=== PATIENT | female | born 1930 | race Caucasian/White ===

== ENCOUNTER 2021-06-27 21:28 | Emergency (ER) | payer MEDICARE, OTHER ==
[~2021-06-27] VITALS: Ht 162.6 cm; Wt 71.0 kg
[~2021-06-27 21:28] MED LIST: BACTROBAN2 % EX; CENTRUM OR; CO Q-10100 MG OR; D3-50 OR; FEMARA2.5 MG OR; INDOCIN25 MG OR; LABETALOL200 MG OR; LASIX 20 MG TAB20 MG PO; LASIX20 MG PO; LASIX40 MG OR; MAGNESIUM250 M1 OR; MELATONIN5 MG OR; MOTRIN400 MG PO; NEXIUM40 M1 PO; NORVASC2.5 M1 OR; OMEPRAZOLE20 MG OR; PERCOCET 5/325M1 TAB OR; PERCOCET1 TA2 OR; PERCOCET1 TA3 OR; ZETIA10 MG OR; ZYRTEC10 MG OR
[2021-06-27 22:17] LABS: HEMATOCRIT 27.8 % (37.0-47.0); IMMATURE GRANULOCYTES 0.1 % (0.0-5.0); MEAN CELL VOLUME 103.7 fL CALC (80.0-100.0); MEAN CORPUSCULAR HGB 32.1 pG CALC (26.0-32.0); MEAN CORPUSCULAR HGB CONC 30.9 g/dL CAL (32.0-36.0); NEUT# 4.11 thou/uL (2.00-7.15); RED BLOOD COUNT 2.68 mill/uL (4.20-5.60); RED CELL DISTRI WIDTH 15.3 % (11.5-15.5)
[2021-06-27 22:38] LABS: HEMOGLOBIN 8.6 g/dl (12.0-16.0)
[2021-06-27 22:41] LABS: INTERNATIONAL NORMALIZED RATIO 1.2 RATIO (0.7-1.3); PROTHROMBIN TIME 12.6 SECONDS (9.0-12.5)
[2021-06-27 22:47] LABS: ALBUMIN 3.1 g/dL (3.2-5.0); BILIRUBIN, TOTAL 0.3 mg/dL (0.0-1.4); CREATININE 1.1 mg/dL (0.5-1.0); POTASSIUM 3.9 mmol/l (3.5-5.1); TOTAL PROTEIN 6.3 g/dL (6.3-8.2)
[2021-06-28 01:00] VITALS: BP 143/57
== END 2021-06-28 01:00 ==
LOC: ED 21:28
PROVIDERS: Family Medicine
PROC: 2Y41X5Z Packing of Nasal Region using Packing Material (ICD-10-PCS; principal; 2021-06-27)
DX: R04.0 Epistaxis (principal); D64.9 Anemia, unspecified; I48.91 Unspecified atrial fibrillation; I10 Essential (primary) hypertension; Z79.01 Long term (current) use of anticoagulants
CPT/HCPCS: Q9967

== ENCOUNTER 2021-09-23 17:21 | Emergency (ER) | payer MEDICARE, OTHER ==
[~2021-09-23] VITALS: Ht 162.6 cm; Wt 84.0 kg
[2021-09-23 18:44] VITALS: BP 145/70
[2021-09-23 19:01] VITALS: BP 127/50
[2021-09-23 19:01] LABS: HEMATOCRIT 29.5 % (37.0-47.0); HEMOGLOBIN 8.8 g/dl (12.0-16.0); IMMATURE GRANULOCYTES 0.1 % (0.0-5.0); MEAN CELL VOLUME 109.7 fL CALC (80.0-100.0); MEAN CORPUSCULAR HGB 32.7 pG CALC (26.0-32.0); MEAN CORPUSCULAR HGB CONC 29.8 g/dL CAL (32.0-36.0); NEUT# 4.38 thou/uL (2.00-7.15); RED BLOOD COUNT 2.69 mill/uL (4.20-5.60); RED CELL DISTRI WIDTH 15.3 % (11.5-15.5)
[2021-09-23 19:18] LABS: ALBUMIN 3.4 g/dL (3.2-5.0); BILIRUBIN, TOTAL 0.2 mg/dL (0.0-1.4); CREATININE 1.3 mg/dL (0.5-1.0); TOTAL PROTEIN 6.8 g/dL (6.3-8.2)
[2021-09-23 19:19] LABS: POTASSIUM 5.3 mmol/l (3.5-5.1)
[2021-09-23 19:21] LABS: D-DIMER 3.49 mg/L (0.19-0.60)
[2021-09-23 19:25] LABS: ACT PARTIAL THROMBO TIME 27.6 SECONDS (20.0-32.5); PROTHROMBIN TIME 10.1 SECONDS (9.0-12.5)
[2021-09-23 20:02] VITALS: BP 154/65
[2021-09-23 22:01] VITALS: BP 135/67
[2021-09-23 23:00] VITALS: BP 137/61
== END 2021-09-23 23:37 | disposition home or self-care (01) ==
LOC: ED 17:21
PROVIDERS: Family Medicine
DX: R04.2 Hemoptysis (principal); I48.91 Unspecified atrial fibrillation; I10 Essential (primary) hypertension; Z79.01 Long term (current) use of anticoagulants
CPT/HCPCS: Q9967

== ENCOUNTER 2021-11-20 13:27 | Observation (INO) | payer MEDICARE, OTHER ==
[2021-11-20] VITALS (17 sets, daily range): BP systolic 127–170; BP diastolic 43–88
[~2021-11-20] VITALS: Ht 162.6 cm; Wt 87.0 kg
--- NOTE | 2021-11-20 13:32 | NUR ---
PATIENT ROOMED VIA EMS IN [facility]. VSS. ALERT AND ORIENTED X 4
[2021-11-20 14:43] LABS: HEMATOCRIT 29.1 % (37.0-47.0); IMMATURE GRANULOCYTES 0.2 % (0.0-5.0); MEAN CELL VOLUME 101.7 fL CALC (80.0-100.0); MEAN CORPUSCULAR HGB 31.5 pG CALC (26.0-32.0); MEAN CORPUSCULAR HGB CONC 30.9 g/dL CAL (32.0-36.0); NEUT# 8.87 thou/uL (2.00-7.15); RED BLOOD COUNT 2.86 mill/uL (4.20-5.60); RED CELL DISTRI WIDTH 14.8 % (11.5-15.5)
[2021-11-20 14:48] LABS: ALBUMIN 3.5 g/dL (3.2-5.0); CREATININE 1.1 mg/dL (0.5-1.0); POTASSIUM 4.3 mmol/l (3.5-5.1); TOTAL PROTEIN 6.7 g/dL (6.3-8.2)
[2021-11-20 14:49] LABS: BILIRUBIN, TOTAL 0.4 mg/dL (0.0-1.4)
[2021-11-20] MEDS ORDERED: INDOMETHACIN50 MG PO (14:52)
[2021-11-20] MEDS ORDERED: LASIX 20 MG TAB20 MG PO (14:53)
[2021-11-20] MEDS ORDERED: MAGNESIUM400 MG PO (14:54)
[2021-11-20] MEDS ORDERED: OMEPRAZOLE DR40 MG PO (14:55)
[2021-11-20] MEDS ORDERED: MELATONIN3 MG PO (14:55)
[2021-11-20] MEDS ORDERED: KLOR-CON M1010 MEQ PO (14:56)
[2021-11-20] MEDS ORDERED: XARELTO15 MG PO (14:56)
[2021-11-20] MEDS ORDERED: SENNA8.6 MG PO (14:57)
[2021-11-20] MEDS ORDERED: GABAPENTIN300 M2 PO (14:58)
[2021-11-20] MEDS ORDERED: LABETALOL HYDR200 MG PO (14:58)
[2021-11-20] MEDS ORDERED: IPRATROPIU0.5 MG/3 M IN (14:59)
--- NOTE | 2021-11-20 16:00 | NUR ---
PT RETURNED FROM RADIOLOGY; DRESSING TO FOREHEAD SATURATED; WOUND CLEANSED WITH SALINE AND DRY PRESSURE DRESING APPLIED; PT TOLERATED WELL; DAUGHTER AT BEDSIDE ADVISED OF CONTINUED WAIT TIME FOR RESULTS
--- NOTE | 2021-11-20 16:39 | NUR ---
SAEED AT BEDSIDE TO DISCUSS POC AND FINDINGS
--- NOTE | 2021-11-20 18:05 | NUR ---
Admission Note Report Given to: JITENDRA MCNEILL Transported by: Wheelchair X Stretcher Transported with: X Nurse Transporter X Patent IV O2 X Solid Waste Analyst Location: ICU X MS2
--- NOTE | 2021-11-20 18:18 | NUR ---
PATIENT ARRIVED TO ROOM 260 FROM ER AT 1810, ALERT, ORIENTED X3, BRIEFED, REDNESS TO RLE, HEAD/FOREHEAD BANDAGED, RESTING COMFORTABLY IN BED.
--- NOTE | 2021-11-20 19:30 | NUR ---
PATIENT RESTING IN BED AT THIS TIME WITH EYES CLOSED. RESPS ARE EVEN AND UNLABORED. HOB IS ELEVATED. DRESSING TO FOREHEAD INTACT. TELE MONITOR IN PLACE. SALINE LOCK TO LEFT WRIST INTACT. CALL LIGHT IN REACH. WILL CONT TO MONITOR.
--- NOTE | 2021-11-20 22:00 | NUR ---
PATIENT RESTING IN BED WITH EYES CLOSED. RESPS ARE EVEN AND UNLABORED. DROWSY BUT RESPONDS TO VERBAL STIMULI. SPEECH IS SLIGHTLY SLURRED. PATIENT WITH DRESSING TO LEFTT FOREHEAD INTACT. HOB IS ELEVATED. COLOR IS PALE AND SKIN IS WARM AND DRY. TELE MONITOR IN PLACE-SR-70'S 1ST DEGREE AVB. SALINE LOCK TO LEFT WRIST INTACT. IVF NS HUNG AND INFUSING AT 50CC/HR. SPOKE WITH YUNG AT [facility] FOR ADDITIONAL PATIENT INFO. STATES THAT THE PATIENTIS JUST GETTING OVER COVID-TESTED NEG HERE TODAY. MOSTLY WHEELCHAIR BOUND AND IS [place]. PATIENT ABLE TO TAKE PO MEDS WITH WATER WITHOUT ANY DIFFICULTY. ATTEMPT TO ORIENT PATIENT TO ROOM AND SURROUNDINGS BUT PATIENT DOES REMAIN DROWSY-WILL REINFORCED. SAFETY PRECAUTIONS REINFORCED. BED ALARM IN PLACE FOR PATIENT SAFETY. CALL LIGHT IN REACH. WILL CONT TO MONITOR.
--- NOTE | 2021-11-21 00:52 | NUR ---
RESTING IN BED-RESPONDS TO VERBAL STIMULI. PATIENT INCONT OF LARGE AMT OF URINE. PERICARE PROVIDED WITH SOAP AND WATER. BARRIER CREAM APPLIED TO PERINEAL AND BUTTOCKS AREA. LINENS AND GOWN WERE CHANGED. TURNED AND REPOSITIONED. PATIENT WITH PAIN TO RIGHT ARM/SHOULDER AREA-GRIMACES WITH PAIN. STATES THT SHE HAS BAD ARTHRITIS IN THAT ARM. MEDICATED WITH TYLENOL 650MG PO FOR RIGHT ARM PAIN. BED ALARM IN PLACE FOR PATIENT SAFETY. VS TAKEN AND RECORDED. TELE MONITOR REMAINS IN PLACE. IVF NS PATENT AND INFUDING LEFT WRIST SITE AT 50CC/HR. TELE MONITOR IN PLACE. CALL LIGHT IN REACH. WILL CONT TO MONITOR.
[2021-11-21 00:57] VITALS: BP 141/62
--- NOTE | 2021-11-21 04:30 | NUR ---
PATIENT RESTING IN BED WITH HOB ELEVATED. EYES ARE CLOSED AND RESPS ARE EVEN AND UNLABORED. DRESSING TO LEFT FOREHEAD REMAINS CDI. TGELE MONITOR INPLACE-LAST READING WAS SR-78 1ST DEGREE AVB. NS PATENT AND INFUSING VIALEFT WRIST SITE AT 50CC/HR. SITE REMAINS HEALTHY. BED ALARM IN PLACE. CALL LIGHT IN REACH. WILL CONT TO MONITOR.
[2021-11-21 05:00] LABS: HEMATOCRIT 25.6 % (37.0-47.0); MEAN CELL VOLUME 101.6 fL CALC (80.0-100.0); MEAN CORPUSCULAR HGB 31.7 pG CALC (26.0-32.0); MEAN CORPUSCULAR HGB CONC 31.3 g/dL CAL (32.0-36.0); RED BLOOD COUNT 2.52 mill/uL (4.20-5.60); RED CELL DISTRI WIDTH 14.8 % (11.5-15.5)
[2021-11-21 05:14] VITALS: BP 150/84
[2021-11-21 05:18] LABS: ANION GAP 7 (6-22 (CALC)); BUN 29 mg/dL (8-23); BUN/CREATININE RATIO 31 (12-20 (CALC)); CARBON DIOXIDE 26 mmol/l (22-30); CHLORIDE 107 mmol/l (95-108); CREATININE 0.9 mg/dL (0.5-1.0); GFR FOR AFR.AMER. > 60 ML/MIN (>=60 (CALC)); GFR OTHER RACES 59 ML/MIN (>=60 (CALC)); MAGNESIUM 2.2 mg/dL (1.6-2.3); POTASSIUM 4.6 mmol/l (3.5-5.1); SODIUM 135 mmol/l (137-146)
[2021-11-21 06:46] VITALS: BP 163/69
--- NOTE | 2021-11-21 07:27 | NUR ---
PATIENT ARRIVED FROM [facility] WITH A YELLOW DNR ORDER SIGNED BY DR. PEÑA. DNR ORDER PLACED IN THE CHART.
--- NOTE | 2021-11-21 08:00 | NUR ---
GOT REPORT FROM TRUCK DRIVER INSTRUCTOR. PATIENT ASSESSED. AOX3. PATIENT SAT UP IN BED TO EAT BREAKFAST OFFERED ASSISTANCE BUT PATIENT REFUSED. PATIENT TOOK MEDICATION. DENIES ANY ISSUES AT THIS TIME. CALL LIGHT AND BEDSIDE TABLE WITH IN REACH. ADVISED TO CALL IF SHE NEEDED ANYTHING.
[2021-11-21 10:44] VITALS: BP 136/45
--- NOTE | 2021-11-21 12:40 | NUR ---
Discharge instructions given. Patient verbalizes understanding of same. Discharged in stable condition via Wheelchair to [facility] with *Other. All belongings sent with pt.
== END 2021-11-21 12:40 ==
LOC: ED 13:27 → ED-I 16:25 → ED 16:37 → MS2 16:38
PROVIDERS: Family Medicine; ADMIT Internal Medicine; ATTEND Internal Medicine
PROC: 0HQ1XZZ Repair Face Skin, External Approach (ICD-10-PCS; principal; 2021-11-20)
DX: S01.81XA Laceration without foreign body of other part of head, initial encounter (principal); I48.91 Unspecified atrial fibrillation; I12.9 Hypertensive chronic kidney disease with stage 1 through stage 4 chronic kidney disease, or unspecified chronic kidney disease; N18.9 Chronic kidney disease, unspecified; D64.9 Anemia, unspecified; M19.90 Unspecified osteoarthritis, unspecified site; W05.0XXA Fall from non-moving wheelchair, initial encounter; Y92.129 Unspecified place in nursing home as the place of occurrence of the external cause; Z79.01 Long term (current) use of anticoagulants; Z95.0 Presence of cardiac pacemaker; Z79.1 Long term (current) use of non-steroidal anti-inflammatories (NSAID); Z20.822 Contact with and (suspected) exposure to COVID-19

== ENCOUNTER 2021-11-24 19:54 | Emergency (ER) | payer MEDICARE, OTHER ==
[~2021-11-24] VITALS: Ht 162.6 cm; Wt 81.6 kg
[~2021-11-24 19:54] MED LIST changes: +GABAPENTIN300 M2 PO; +INDOMETHACIN50 MG PO; +IPRATROPIU0.5 MG/3 M IN; +KLOR-CON M1010 MEQ PO; +LABETALOL HYDR200 MG PO; +MAGNESIUM400 MG PO; +MELATONIN3 MG PO; +OMEPRAZOLE DR40 MG PO; +SENNA8.6 MG PO; +XARELTO15 MG PO
[2021-11-24 20:12] VITALS: BP 141/68
[2021-11-24 20:15] VITALS: BP 145/64
[2021-11-24 20:30] VITALS: BP 147/51
[2021-11-24] MEDS ORDERED: NAPROXEN500 MG PO (22:44)
[2021-11-24 22:56] VITALS: BP 145/64
== END 2021-11-24 23:37 ==
LOC: ED 19:54
DX: S80.11XA Contusion of right lower leg, initial encounter (principal); S00.12XA Contusion of left eyelid and periocular area, initial encounter; I48.91 Unspecified atrial fibrillation; I10 Essential (primary) hypertension; W19.XXXA Unspecified fall, initial encounter; Y92.129 Unspecified place in nursing home as the place of occurrence of the external cause; M79.604 Pain in right leg; M79.89 Other specified soft tissue disorders

== ENCOUNTER 2021-12-06 10:01 | Emergency (ER) | payer MEDICARE, OTHER ==
[~2021-12-06] VITALS: Ht 162.6 cm; Wt 84.1 kg
[~2021-12-06 10:01] MED LIST changes: +NAPROXEN500 MG PO
[2021-12-06 10:05] VITALS: BP 164/91
[2021-12-06 10:15] VITALS: BP 174/57
[2021-12-06 10:30] VITALS: BP 162/77
[2021-12-06 10:46] VITALS: BP 175/72
[2021-12-06 10:55] VITALS: BP 175/82
== END 2021-12-06 11:08 | disposition home or self-care (01) ==
LOC: ED 10:01
PROC: 0HQ1XZZ Repair Face Skin, External Approach (ICD-10-PCS; principal; 2021-12-06)
DX: S01.81XA Laceration without foreign body of other part of head, initial encounter (principal); I10 Essential (primary) hypertension; W19.XXXA Unspecified fall, initial encounter; Y92.129 Unspecified place in nursing home as the place of occurrence of the external cause

== ENCOUNTER 2021-12-16 09:06 | Emergency (ER) | payer MEDICARE, OTHER ==
[~2021-12-16] VITALS: Ht 162.6 cm; Wt 63.6 kg
[2021-12-16 09:29] VITALS: BP 131/62
[2021-12-16 09:30] VITALS: BP 133/64
[2021-12-16 10:01] VITALS: BP 126/56
== END 2021-12-16 10:33 | disposition home or self-care (01) ==
LOC: ED 09:06
PROC: 0HQ1XZZ Repair Face Skin, External Approach (ICD-10-PCS; principal; 2021-12-16)
DX: S01.81XA Laceration without foreign body of other part of head, initial encounter (principal); I10 Essential (primary) hypertension; I48.91 Unspecified atrial fibrillation; X58.XXXA Exposure to other specified factors, initial encounter; Y92.129 Unspecified place in nursing home as the place of occurrence of the external cause